=== PATIENT | male | born 1990 | race Two or more races ===

== ENCOUNTER 2019-06-21 17:32 | Emergency (ER) | payer SELFPAY ==
[~2019-06-21] VITALS: Ht 182.9 cm; Wt 136.4 kg
[2019-06-21 17:36] VITALS: BP 137/82
== END 2019-06-21 21:36 | disposition left against medical advice (07) ==
LOC: EMS 17:32
DX: K62.5 Hemorrhage of anus and rectum (principal); Z53.21 Procedure and treatment not carried out due to patient leaving prior to being seen by health care provider

== ENCOUNTER 2019-07-24 17:00 | Emergency (ER) | payer OTHER ==
[~2019-07-24] VITALS: Ht 182.9 cm; Wt 127.3 kg
[2019-07-24 17:07] VITALS: BP 144/104
[2019-07-24] MEDS ORDERED: KETOROLAC TROMETHAMINE 60 MG/2 ML VIAL IM ONE (17:30)
[2019-07-24] MEDS ORDERED: LIDOCAINE 5% TRANSDERMAL PATCH TD ONE (17:30)
[2019-07-24] MEDS ORDERED: CYCLOBENZAPRINE HCL 10 MG TABLET PO ONE (17:30)
== END 2019-07-24 18:22 | disposition home or self-care (01) ==
LOC: EMS 17:08
DX: M54.5 Low back pain (principal)
CPT/HCPCS: 96372; 99283; J1885